=== PATIENT | male | born 1970 | race Two or more races ===

== ENCOUNTER 2018-12-06 07:59 | Day surgery (SDC) | payer OTHER ==
[~2018-12-06 07:59] MED LIST: AMOX1TAB12 PO; CIPRO500 MG PO; FLAGYL500MG PO; INTESTINEX1 CA1 PO; LEVSIN/SL0.125 MG PO; OSEL75CA PO; PROTONIX40 MG PO; ZANTAC150 M3 PO
== END 2018-12-06 14:05 | disposition home or self-care (01) ==
LOC: AMB-ENDOS 07:59
DX: K63.5 Polyp of colon (principal); Z12.11 Encounter for screening for malignant neoplasm of colon

== ENCOUNTER 2019-07-21 12:54 | Inpatient (IN) | payer OTHER ==
[~2019-07-21] VITALS: Ht 177.8 cm; Wt 99.8 kg
[2019-07-23] MEDS ORDERED: BUPROPION XL150 MG PO (09:23)
[2019-07-24] MEDS ORDERED: CARdura 2MG TABLET PO (11:58)
[2019-07-24] MEDS ORDERED: TOPROL XL25 M1 PO (11:58)
[2019-07-24] MEDS ORDERED: FLONASE16 GM NASAL (11:58)
[2019-07-24] MEDS ORDERED: ASA-EC81 MG PO (11:58)
[2019-07-24] MEDS ORDERED: LOSARTAN-HCTZ1 EAC2 PO (11:58)
[2019-07-24] MEDS ORDERED: LIPITOR40 MG PO (11:58)
[2019-07-24] MEDS ORDERED: LORATADINE10 MG PO (11:58)
[2019-07-24] MEDS ORDERED: AMLODIPINE BESYL5 MG PO (11:58)
== END 2019-07-24 14:51 | disposition home or self-care (01) | DRG 305 ==
LOC: ER 12:54 → MEDJ 07-22 11:06
PROVIDERS: ADMIT Internal Medicine
PROC: 4A12X4Z Monitoring of Cardiac Electrical Activity, External Approach (ICD-10-PCS; principal; 2019-07-22)
PROC: B246ZZZ Ultrasonography of Right and Left Heart (ICD-10-PCS; 2019-07-22)
PROC: BT43ZZZ Ultrasonography of Bilateral Kidneys (ICD-10-PCS; 2019-07-22)
DX: I16.0 Hypertensive urgency (principal); I10 Essential (primary) hypertension; E66.8 Other obesity; R09.02 Hypoxemia

== ENCOUNTER 2020-10-04 13:11 | Emergency (ER) | payer OTHER ==
[~2020-10-04] VITALS: Ht 177.8 cm; Wt 99.8 kg
[~2020-10-04 13:11] MED LIST changes: +AMLODIPINE BESYL5 MG PO; +ASA-EC81 MG PO; +BUPROPION XL150 MG PO; +CARdura 2MG TABLET PO; +FLONASE16 GM NASAL; +LIPITOR40 MG PO; +LORATADINE10 MG PO; +LOSARTAN-HCTZ1 EAC2 PO; +TOPROL XL25 M1 PO
== END 2020-10-04 17:05 | disposition home or self-care (01) ==
LOC: ER 13:11
DX: M25.562 Pain in left knee (principal)

== ENCOUNTER → 2021-11-25 | Day surgery (SDC) | payer OTHER | END | disposition home or self-care (01) | LOC: ADM 11-23 08:45 → AMB-ENDOS 08:45 | PROVIDERS: ATTEND Colon & Rectal Surgery | DX: D12.5 Benign neoplasm of sigmoid colon (principal) ==

== ENCOUNTER 2022-02-22 11:35 | Emergency (ER) | payer OTHER ==
[~2022-02-22] VITALS: Ht 177.8 cm; Wt 104.3 kg
[2022-02-22] MEDS ORDERED: NORFLEX100MG PO (15:14)
[2022-02-22] MEDS ORDERED: KETO10TA2 PO (15:14)
== END 2022-02-22 15:35 | disposition home or self-care (01) ==
LOC: ER 11:35
DX: M54.50 Low back pain, unspecified (principal); M54.2 Cervicalgia; I10 Essential (primary) hypertension; Z72.0 Tobacco use